=== PATIENT | female | born 1995 | race Caucasian/White ===

== ENCOUNTER 2019-02-19 22:13 | Emergency (ER) | payer OTHER ==
[2019-02-20] MEDS ORDERED: IBUPROFEN 800 MG TABLET PO ONE (01:17)
[2019-02-20] MEDS ORDERED: DIPH/PERTUSS(ACELL)/TETANUS VAC/PF 0.5 ML SYR (>=10YO) IM ONE (01:17)
[2019-02-20] MEDS ORDERED: HYDROCODONE/ACETAMINOPHEN 5-325 MG (6 TAB/ER DISP) PO PRN (01:17)
[2019-02-20] MEDS ORDERED: AMOXICILLIN TR/POT CLAVULANATE 500-125 MG TAB PO ONE (01:18)
--- NOTE | 2019-02-20 01:24 | ER Document Report ---
ED General - General Chief Complaint: Dog Bite Stated Complaint: DOG BITE,LEFT WRIST Time Seen by Provider: 02/20/19 01:02 Mode of Arrival: Ambulatory Information source: Patient TRAVEL OUTSIDE OF THE [place] IN LAST 30 DAYS: No - HPI Notes: Patient is a 23-year-old female presents emergency department with report that she was breaking up a fight between her dog and the neighbor's dog and sustained puncture wounds to the left wrist. She denies any bony deformity or other injury. The dog weighed between 20 and 30 pounds she thought. The patient denies any numbness, paresthesia or loss of mobility. No fever or chills. No chest pain or difficulty breathing. No neck or back pain. She is unaware of when her last tetanus shot was. The dog will be watched and animal control is been contacted and she will also watch her dog, although it was the neighbor's dog that had bitten her. - Related Data Allergies/Adverse Reactions: amoxicillin Allergy (Verified 02/20/19 00:50) Past Medical History - Social History Smoking Status: Never Smoker Frequency of alcohol use: None Drug Abuse: None Lives with: Friend Family History: Reviewed & Not Pertinent Patient has suicidal ideation: No Patient has homicidal ideation: No Renal/ Medical History: Denies: Hx Peritoneal Dialysis Review of Systems - Review of Systems -: Yes All other systems reviewed and negative Physical Exam - Vital signs Vitals: Temp Pulse Resp BP Pulse Ox 98.0 F 74 18 126/70 H 99 02/19/19 22:18 02/19/19 22:18 02/19/19 22:18 02/19/19 22:18 02/19/19 22:18 - Notes Notes: General no apparent distress HEENT atraumatic normocephalic Neck good range of motion. Examination left upper extremity shows nonfocal exam with exception of laceration 1 cm dorsal radial aspect of the wrist and another superficial puncture wound and abrasion adjacent and on the ulnar dorsal side of the wrist there is a 3 mm puncture wound. No evidence for cellulitis or exposed tendon or nerve or bone. Patient has full range of motion although some pain with motion. There is no tendon breach appreciated. No clinical suggestion for tenosynovitis. Course - Re-evaluation Re-evalutation: 02/20/19 01:22 Wounds were cleaned and antibiotic ointment was applied with a wrist cock-up splint. Patient was given a tetanus shot, ibuprofen, Ramsey and Clindamycin. The dogs will be watched and animal control has already been contacted. 02/20/19 01:49 - Vital Signs Vital signs: Temp Pulse Resp BP Pulse Ox 98.0 F 74 18 126/70 H 99 02/19/19 22:18 02/19/19 22:18 02/19/19 22:18 02/19/19 22:18 02/19/19 22:18 Discharge - Discharge Clinical Impression: Dog bite Qualifiers: Encounter type: initial encounter Qualified Code(s): W54.0XXA - Bitten by dog, initial encounter Condition: Stable Disposition: HOME, SELF-CARE Instructions: Animal Bites (OM), Tetanus Immunization Given ([facility]) Additional Instructions: Keep wounds clean and dry. Apply antibiotic ointment to the wounds. Limit motion of left arm due to pain and wounds for one week. Return to the emergency department in case of fever, chills, severe pain or swelling. Follow-up with orthopedics for any complications or continued problems. Follow- up also with animal control. Prescriptions: Hydrocodone/Acetaminophen [Ramsey 5-325 Tablet] 1 each PO Q4HP PRN #14 tablet PRN Reason: Ibuprofen [Ibu] 600 mg PO Q8HP PRN #30 tablet PRN Reason: Clindamycin HCl 300 mg PO TID #30 capsule Forms: Return to Work Referrals: LE ARELLANO MD [ACTIVE PROVISIONAL STAFF] - Follow up as needed
[2019-02-20] MEDS ORDERED: CLINDAMYCIN HCL 150 MG CAPSULE PO ONE (01:25)
[2019-02-20 02:11] VITALS: BP 122/62
== END 2019-02-20 02:11 | disposition home or self-care (01) ==
LOC: ER 22:13
DX: S61.552A Open bite of left wrist, initial encounter (principal); W54.0XXA Bitten by dog, initial encounter
CPT/HCPCS: 90471; 90715; 99283